=== PATIENT | male | born 1945 | race Caucasian/White ===

== ENCOUNTER 2017-01-26 10:01 | Inpatient (IN) | payer MEDICARE, OTHER ==
[~2017-01-26] VITALS: Ht 185.4 cm; Wt 86.0 kg
[2017-03-14] VITALS (13 sets, daily range): BP systolic 90–112; BP diastolic 48–76; PULSE 52–76; TEMP 96.8–97.6
[2017-03-14] MEDS ORDERED: SYNTHROID0.1 MG/TAB PO (00:02)
[2017-03-14] MEDS ORDERED: CRESTOR 10MG10 MG PO (00:03)
[2017-03-15 01:55] VITALS: BP 92/59; PULSE 61; TEMP 98.5
[2017-03-15 05:55] VITALS: BP 94/56; PULSE 116; TEMP 98.2
[2017-03-15 07:37] LABS: HEMATOCRIT 35.1 % (42.0-52.0); HEMOGLOBIN 11.6 g/dl (13.5-18.0)
[2017-03-15 07:48] VITALS: BP 96/56; PULSE 66; TEMP 98.2
== END 2017-03-15 10:12 | disposition home or self-care (01) | DRG 483 ==
LOC: SURG 03-14 05:09 → JCC 03-14 07:30 → SURG 03-15 10:12
PROVIDERS: Orthopaedic Surgery
PROC: 0RRK0JZ Replacement of Left Shoulder Joint with Synthetic Substitute, Open Approach (ICD-10-PCS; principal; 2017-03-14 07:30)
DX: M19.012 Primary osteoarthritis, left shoulder (principal)
CPT/HCPCS: A4315; A9284; C1713; C1776; J0171; J0690; J1100; J1170; J2300; J2405; J2704; J2710; J3370; J7120

== ENCOUNTER → 2017-03-07 | Outpatient (CLI) | payer MEDICARE, OTHER ==
[~2017-03-07] MED LIST: CRESTOR 10MG10 MG PO; SYNTHROID0.1 MG/TAB PO
[2017-03-07 12:26] LABS: HIV 1/2 Antibodies Non-Reactive; HIV-1p24 Antigen Non-Reactive
== END ==
LOC: COL.LAB 10:38
PROVIDERS: Orthopaedic Surgery
DX: Z01.812 Encounter for preprocedural laboratory examination (principal)

== ENCOUNTER 2017-09-13 12:28 | Inpatient (IN) | payer MEDICARE, OTHER ==
[~2017-09-13] VITALS: Ht 185.4 cm; Wt 81.7 kg
[2017-11-19] VITALS (10 sets, daily range): BP systolic 112–130; BP diastolic 58–83; PULSE 54–98; TEMP 97.8–98.8
[2017-11-19] MEDS ORDERED: MOTRIN 200200 MG/TAB PO (09:28)
[2017-11-20 00:23] VITALS: BP 105/63; PULSE 63; TEMP 98.6
[2017-11-20 03:49] VITALS: BP 99/75; PULSE 57; TEMP 98.7
[2017-11-20 06:42] LABS: HEMOGLOBIN 11.5 g/dl (13.5-18.0)
[2017-11-20 07:15] VITALS: BP 104/74; PULSE 64; TEMP 97.6
[2017-11-20 11:15] VITALS: BP 108/65; PULSE 62; TEMP 97.8
[2017-11-20 15:51] VITALS: BP 104/54; PULSE 74; TEMP 98.8
[2017-11-20 20:08] VITALS: BP 114/73; BP 96/52; PULSE 69; TEMP 98.5
[2017-11-20] MEDS ORDERED: NORCO 325 MG-7.1 TAB PO (21:15)
[2017-11-20] MEDS ORDERED: ASPI325T6 PO (21:16)
[2017-11-21 04:04] VITALS: BP 94/65; PULSE 72; TEMP 98
[2017-11-21 07:00] VITALS: BP 105/56; PULSE 66; TEMP 98.3
[2017-11-21 10:52] VITALS: BP 107/61; PULSE 73; TEMP 98.8
[2017-11-21 15:15] VITALS: BP 106/58; PULSE 70; TEMP 98.6
[2017-11-21 19:52] VITALS: BP 120/54; PULSE 85; TEMP 98.7
[2017-11-22 04:32] VITALS: BP 107/61; PULSE 75; TEMP 97.5
[2017-11-22] MEDS ORDERED: ULTRAM 50MG TAB50 MG PO (06:42)
[2017-11-22 07:56] VITALS: BP 120/63; PULSE 94; TEMP 99.3
[2017-11-22 11:01] VITALS: BP 101/56; PULSE 74; TEMP 98.5
== END 2017-11-22 13:41 | disposition home or self-care (01) | DRG 470 ==
LOC: JCC 11-19 08:41
PROVIDERS: Orthopaedic Surgery
PROC: 0SRD0J9 Replacement of Left Knee Joint with Synthetic Substitute, Cemented, Open Approach (ICD-10-PCS; principal; 2017-11-19 14:55)
DX: M17.12 Unilateral primary osteoarthritis, left knee (principal)
CPT/HCPCS: A4314; A9284; C1713; C1776; J0690; J2175; J2250; J2270; J2370; J2704; J3010; J7120

== ENCOUNTER → 2017-11-12 | Outpatient (CLI) | payer MEDICARE, OTHER ==
[2017-11-12 10:14] LABS: HIV 1/2 Antibodies Non-Reactive; HIV-1p24 Antigen Non-Reactive
== END ==
LOC: COL.LAB 09:14
PROVIDERS: Orthopaedic Surgery
DX: Z01.812 Encounter for preprocedural laboratory examination (principal); M17.12 Unilateral primary osteoarthritis, left knee